=== PATIENT | male | born 1955 | race Hispanic/Latino ===

== ENCOUNTER 2017-02-15 22:56 | Emergency (ER) | payer SELFPAY ==
[2017-02-15 23:04] VITALS: BP 130/78; PULSE 70; RESP 18; TEMP 98; O2SAT 99
[2017-02-15] MEDS ORDERED: Lidocaine 1% Inj (20ml) ONE (23:32)
[2017-02-15] MEDS ORDERED: Lidocaine 1% (10 ml) Inj INFIL STA (23:35)
--- NOTE | 2017-02-16 01:18 | CT ---
EXAM: CT Maxillofacial Without Intravenous Contrast CLINICAL HISTORY: 62 years old, male; Injury or trauma; Fall; Initial encounter; Abrasion and blunt trauma (contusions or hematomas); Forehead and orbit/periorbital and maxilla; Bilateral; Cheek bone and forehead and orbit/periorbital; Additional info: Facial injury TECHNIQUE: Axial computed tomography images of the face without intravenous contrast. This CT exam was performed using one or more of the following dose reduction techniques: automated exposure control, adjustment of the mA and/or kV according to patient size, and/or use of iterative reconstruction technique. Coronal and sagittal reformatted images were created and reviewed. EXAM DATE/TIME: 02/15/2017 11:37 PM COMPARISON: There are no prior studies for comparison. FINDINGS: Bones/joints: There is no facial bone fractures There are degenerative changes in the cervical spine. Soft tissues: There is left frontal scalp swelling and bruising. There is left periorbital soft tissue swelling. There is right frontal and nasal soft tissue swelling/edema Orbits: Orbital contents are unremarkable. Sinuses: There is minimal mucoperiosteal thickening in the sinuses. Mastoid air cells: Middle ears and mastoids are incompletely imaged. There is debris in the external auditory canals. Dental: There is extensive dental disease. There are multiple apical erosions. There are dental caries. Brain: No focal abnormalities are seen in visualized portion of the brain. IMPRESSION: Facial soft tissue swelling, no facial bone fractures; extensive dental disease Additional findings as described above.
--- NOTE | 2017-02-16 01:19 | CT ---
EXAM: CT Head Without Intravenous Contrast CLINICAL HISTORY: 62 years old, male; Injury or trauma; Fall; Initial encounter; Abrasion and blunt trauma (contusions or hematomas); Face and forehead; Additional info: Head injury, fall, ETOH TECHNIQUE: Axial computed tomography images of the head/brain without intravenous contrast. This CT exam was performed using one or more of the following dose reduction techniques: automated exposure control, adjustment of the mA and/or kV according to patient size, and/or use of iterative reconstruction technique. Coronal and sagittal reformatted images were created and reviewed. EXAM DATE/TIME: 02/15/2017 11:36 PM COMPARISON: There are no prior studies for comparison. FINDINGS: Brain: Ventricles are normal in size and configuration. There is no midline shift. There is mild prominence of sulci and gyri. There are no intra-axial or extra-axial mass lesions or areas of hemorrhage. There are no abnormal fluid collections. Kramer-white differentiation is maintained. Ventricles: See above. Bones: Cranial vault is intact. Soft tissues: There is a left frontal scalp hematoma. There is a right frontal scalp hematoma. Sinuses: There is no acute sinusitis. Ears and mastoids: Middle ears and mastoids are unremarkable Orbits: Orbital contents are unremarkable. IMPRESSION: Frontal scalp hematomas, no acute intracranial abnormality
[2017-02-16] MEDS ORDERED: Tetanus/Diphtheria Toxoids 0.5 ml Syringe IM ONE (03:38)
[2017-02-17 13:33] LABS: BILIRUBIN,TOTAL 0.6 mg/dl (0.2-1.3); CALCIUM 9.7 mg/dL (8.4-10.2); TOTAL PROTEIN 7.2 G/DL (6.3-8.2)
[2017-02-17 13:34] LABS: ALB/GLOB RATIO 1.3 (1.0-2.1)
--- NOTE | 2017-03-02 01:51 | ED PDOC ---
- Laboratory Results Result Diagrams: 02/15/17 04:20 - ECG O2 Sat by Pulse Oximetry: 99 - Progress ED Course And Treament: Case endorsed to comic writer from [facility] pending CT's, clinical sobriety CT head: frontal hematomas, otherwise no acute findings CT facial: no acute findings On re-eval, patient awake. Accucheck 64, given juice and sandwich; appears intoxicated however requesting to leave. Patient denies alcohol use. labs ordered 4:55 Patient awake, alert, oriented x3. Ambulating steady gait. Patient educated on findings, discharged with instructions on wound care. Follow up PMD 2-3 days. Return to ED for worsening/concerning symptoms. Disposition - Clinical Impression Clinical Impression: Alcohol intoxication, Eyebrow laceration - POA Present On Arrival: None - Disposition Disposition: Routine/Home Disposition Time: 04:55 Condition: STABLE
--- NOTE | 2017-03-02 14:55 | ED PDOC ---
HPI: Psych/Substance Abuse Time Seen by Provider: 02/15/17 23:26 Chief Complaint (Nursing): Abnormal Skin Integrity Chief Complaint (Provider): Left eyebrow laceration, fall, ETOH ED Caveat: Acuity of Condition History Per: Patient History/Exam Limitations: no limitations Onset/Duration Of Symptoms: Unknown Current Symptoms Are (Timing): Still Present Modifying Factor(s): Alcohol Involuntary Hold By: None Additional Complaint(s): Pt brought in by EMS after a fall. PT reports drinking 2 beers but does not remember how he fell. (+) bleeding from left eyebrow. Unknown tetanus. Past Medical History Reviewed: Historical Data, Nursing Documentation, Vital Signs Vital Signs: Last Vital Signs Temp 98 F 02/15/17 23:02 Pulse 70 02/15/17 23:02 Resp 18 02/15/17 23:02 BP 130/78 02/15/17 23:02 Pulse Ox 99 03/02/17 01:52 - Medical History PMH: No Chronic Diseases - Surgical History Surgical History: No Surg Hx - Family History Family History: States: Unknown Family Hx - Living Arrangements Living Arrangements: With Family - Social History Current smoker - smoking cessation education provided: No Alcohol: Occasional Drugs: Denies - Allergies Allergies/Adverse Reactions: Allergies Allergy/AdvReac Type Severity Reaction Status Date / Time No Known Allergies Allergy Verified 02/15/17 23:02 Review of Systems ROS Statement: Except As Marked, All Systems Reviewed And Found Negative Skin: Positive for: Other (Left eyebrow laceration ) Physical Exam - Reviewed Nursing Documentation Reviewed: Yes Vital Signs Reviewed: Yes - Physical Exam Appears: Positive for: Well, Non-toxic, No Acute Distress Head Exam: Positive for: ATRAUMATIC, NORMAL INSPECTION, NORMOCEPHALIC Skin: Positive for: Warm. Negative for: Normal Color (3 cm jagged eyebrow laceration) Eye Exam: Positive for: Normal appearance, EOMI, PERRL ENT: Positive for: Normal ENT Inspection Neck: Positive for: Normal, Painless ROM Cardiovascular/Chest: Positive for: Regular Rate, Rhythm Respiratory: Positive for: CNT, Normal Breath Sounds Gastrointestinal/Abdominal: Positive for: Normal Exam, Bowel Sounds, Soft Back: Positive for: Normal Inspection Extremity: Positive for: Normal ROM Neurologic/Psych: Positive for: Alert, Oriented - Laboratory Results Result Diagrams: 02/15/17 04:20 - ECG O2 Sat by Pulse Oximetry: 99 Pulse Ox Interpretation: Normal Medical Decision Making Medical Decision Making: Head and facial CT completed. Pt endorsed at 0035 pending sobriety. Procedures - Time-Out Type of Procedure: Laceration repair Site of Procedure: Left eyebrow Correct Patient (with visual ID + MR# on ID Band): Yes Correct Procedure: Yes Correct Site Marked: Yes Physician Name: MANOJ Washington - Laceration/Wound Repair Left eyebrow Wound Length (cm): 3 Wound's Depth, Shape: linear, irregular Wound Explored: clean Anesthesia: 1% Lidocaine Volume Anesthetic (ccs): 1 Wound Debrided: minimal Wound Repaired With: Sutures Deep Layer Suture Size/Type: 6:0, chromic (X6) Wound Complexity: Simple Disposition - Clinical Impression Clinical Impression: Alcohol intoxication, Eyebrow laceration - Disposition Disposition: Routine/Home Disposition Time: 04:55 Condition: STABLE - POA Present On Arrival: None
== END 2017-02-16 20:03 | disposition home or self-care (01) ==
LOC: H.ER 22:56 → H.EDERROR 22:56
DX: S01.112A Laceration without foreign body of left eyelid and periocular area, initial encounter (principal); F10.129 Alcohol abuse with intoxication, unspecified; W19.XXXA Unspecified fall, initial encounter
CPT/HCPCS: 12013; 36415; 70450; 70486; 80053; 82948; 85025; 99281; G0480